=== PATIENT | female | born 1940 | race Caucasian/White ===

== ENCOUNTER 2022-01-29 18:57 | Emergency (ER) | payer OTHER, MEDICAID ==
[~2022-01-29] VITALS: Ht 165.1 cm; Wt 81.6 kg
[2022-01-29] MEDS ORDERED: SODIUM CHLORIDE 0.9% 1,000 ML IVB ONE (19:30)
[2022-01-29 20:09] LABS: Basophils # (auto) 0.1 10 ^3/uL (0-0.2); Basophils % (auto) 0.6 % (0.0-2.0); Eosinophils # (auto) 0.1 10 ^3/uL (0-0.8); Eosinophils % (auto) 0.6 % (0.0-7.0); Hematocrit 34.1 % (36.0-46.0); Hemoglobin 11.4 g/dL (12.2-16.2); Lymphocytes # (auto) 1.3 10 ^3/uL (0.4-5.4); Lymphocytes % (auto) 9.9 % (10.0-50.0); Mean Corpuscular Hemoglobin 31.4 pg (28.0-32.0); Mean Corpuscular Hgb Conc. 33.4 g/dL (32.0-36.0); Mean Corpuscular Volume 94.1 fL (80.0-100.0); Monocytes # (auto) 0.7 10 ^3/uL (0-1.3); Monocytes % (auto) 5.4 % (0.0-12.0); Neutrophils % (auto) 83.5 % (37.0-80.0); Red Blood Cells 3.62 10^6/uL (4.0-5.20); White Blood Cell 13.1 10^3/uL (4.4-10.8)
[2022-01-29 20:28] LABS: Calcium 8.7 mg/dL (8.5-10.1); Potassium 4.3 mmol/L (3.5-5.1)
[2022-01-29 20:30] LABS: Bilirubin, Total 0.2 mg/dL (0.2-1.0); Lactic Acid w/Reflex 2.5 mmol/L (0.4-2.0); Total Protein 5.9 g/dL (6.4-8.2)
[2022-01-29 20:38] LABS: INR 1.06 (0.9-1.15)
[2022-01-29 23:16] VITALS: BP 98/51
== END 2022-01-30 | disposition short-term general hospital (02) ==
LOC: EDBD 18:57 → ER 19:00
DX: S06.5X0A Traumatic subdural hemorrhage without loss of consciousness, initial encounter (principal); S80.811A Abrasion, right lower leg, initial encounter; R94.31 Abnormal electrocardiogram [ECG] [EKG]; Z20.822 Contact with and (suspected) exposure to COVID-19; W18.39XA Other fall on same level, initial encounter; Y93.89 Activity, other specified; Y92.89 Other specified places as the place of occurrence of the external cause; Y99.8 Other external cause status
CPT/HCPCS: 36415; 70450; 71045; 80053; 83605; 85025; 85610; 93005; 96360; 99285; C9803; J7030; U0003

== ENCOUNTER → 2022-02-25 | Outpatient (CLI) | payer MEDICAID ==
[2022-02-25 07:50] LABS: Basophils # (auto) 0.1 10 ^3/uL (0-0.2); Basophils % (auto) 1.3 % (0.0-2.0); Eosinophils # (auto) 0.1 10 ^3/uL (0-0.8); Hematocrit 33.2 % (36.0-46.0); Hemoglobin 10.6 g/dL (12.2-16.2); Lymphocytes # (auto) 1.1 10 ^3/uL (0.4-5.4); Lymphocytes % (auto) 20.7 % (10.0-50.0); Mean Corpuscular Hemoglobin 29.2 pg (28.0-32.0); Mean Corpuscular Volume 91.1 fL (80.0-100.0); Monocytes # (auto) 0.6 10 ^3/uL (0-1.3); Monocytes % (auto) 10.6 % (0.0-12.0); Neutrophils # (auto) 3.5 10 ^3/uL (1.6-8.6); Neutrophils % (auto) 65.4 % (37.0-80.0); Red Blood Cells 3.65 10^6/uL (4.0-5.20); White Blood Cell 5.4 10^3/uL (4.4-10.8)
[2022-02-25 07:55] LABS: Urine Bacteria NONE SEEN /hpf (None Seen); Urine Blood Negative /uL (Negative); Urine Specific Gravity 1.015 (1.001-1.035); Urine WBC 53 /hpf (0 - 5)
== END | disposition home or self-care (01) ==
LOC: LAB 07:24
PROVIDERS: ATTEND Internal Medicine
DX: Z00.00 Encounter for general adult medical examination without abnormal findings (principal)
CPT/HCPCS: 36415; 81001; 85025

== ENCOUNTER → 2022-04-01 | Outpatient (CLI) | payer MEDICAID ==
[2022-04-01 07:07] LABS: Basophils # (auto) 0.1 10 ^3/uL (0-0.2); Basophils % (auto) 1.2 % (0.0-2.0); Eosinophils # (auto) 0.1 10 ^3/uL (0-0.8); Eosinophils % (auto) 1.9 % (0.0-7.0); Hematocrit 35.2 % (36.0-46.0); Lymphocytes % (auto) 17.5 % (10.0-50.0); Mean Corpuscular Hemoglobin 27.4 pg (28.0-32.0); Mean Corpuscular Hgb Conc. 31.3 g/dL (32.0-36.0); Mean Corpuscular Volume 87.5 fL (80.0-100.0); Monocytes # (auto) 0.6 10 ^3/uL (0-1.3); Monocytes % (auto) 10.5 % (0.0-12.0); Neutrophils # (auto) 3.8 10 ^3/uL (1.6-8.6); Neutrophils % (auto) 68.9 % (37.0-80.0); Red Blood Cells 4.03 10^6/uL (4.0-5.20); White Blood Cell 5.5 10^3/uL (4.4-10.8)
[2022-04-01 08:02] LABS: Folate (Folic Acid) 14.71 ng/mL (5.38-24)
== END | disposition home or self-care (01) ==
LOC: LAB 06:45
PROVIDERS: ATTEND Internal Medicine
DX: N39.0 Urinary tract infection, site not specified (principal); D64.9 Anemia, unspecified
CPT/HCPCS: 36415; 82607; 82746; 85025

== ENCOUNTER → 2022-04-08 | Outpatient (CLI) | payer MEDICAID | END | disposition home or self-care (01) | LOC: LAB 12:08 | PROVIDERS: ATTEND Internal Medicine | DX: N39.0 Urinary tract infection, site not specified (principal); D64.9 Anemia, unspecified | CPT/HCPCS: 82270 ==

== ENCOUNTER → 2022-08-12 | Outpatient (CLI) | payer MEDICAID ==
[2022-08-12 09:24] LABS: Basophils # (auto) 0.1 10 ^3/uL (0-0.2); Basophils % (auto) 0.8 % (0.0-2.0); Eosinophils # (auto) 0.1 10 ^3/uL (0-0.8); Eosinophils % (auto) 1.1 % (0.0-7.0); Hematocrit 36.5 % (36.0-46.0); Hemoglobin 12.4 g/dL (12.2-16.2); Lymphocytes # (auto) 1.2 10 ^3/uL (0.4-5.4); Lymphocytes % (auto) 16.5 % (10.0-50.0); Mean Corpuscular Hgb Conc. 33.8 g/dL (32.0-36.0); Mean Corpuscular Volume 88.7 fL (80.0-100.0); Monocytes # (auto) 0.6 10 ^3/uL (0-1.3); Monocytes % (auto) 8.8 % (0.0-12.0); Neutrophils # (auto) 5.2 10 ^3/uL (1.6-8.6); Neutrophils % (auto) 72.8 % (37.0-80.0); Red Blood Cells 4.12 10^6/uL (4.0-5.20); Red Cell Distribution Width 17.1 % (11.8-14.3); White Blood Cell 7.1 10^3/uL (4.4-10.8)
== END | disposition home or self-care (01) ==
LOC: LAB 08:57
PROVIDERS: ATTEND Internal Medicine
DX: D64.9 Anemia, unspecified (principal)
CPT/HCPCS: 36415; 85025

== ENCOUNTER → 2022-12-23 | Outpatient (CLI) | payer OTHER, MEDICAID ==
[2022-12-23 07:36] LABS: Basophils # (auto) 0.1 10 ^3/uL (0-0.2); Basophils % (auto) 1.2 % (0.0-2.0); Eosinophils # (auto) 0.1 10 ^3/uL (0-0.8); Eosinophils % (auto) 2.6 % (0.0-7.0); Hematocrit 38.2 % (36.0-46.0); Hemoglobin 12.9 g/dL (12.2-16.2); Lymphocytes # (auto) 1.1 10 ^3/uL (0.4-5.4); Lymphocytes % (auto) 20.2 % (10.0-50.0); Mean Corpuscular Hemoglobin 31.6 pg (28.0-32.0); Mean Corpuscular Hgb Conc. 33.7 g/dL (32.0-36.0); Mean Corpuscular Volume 93.8 fL (80.0-100.0); Monocytes # (auto) 0.5 10 ^3/uL (0-1.3); Monocytes % (auto) 10.4 % (0.0-12.0); Neutrophils # (auto) 3.4 10 ^3/uL (1.6-8.6); Neutrophils % (auto) 65.6 % (37.0-80.0); Red Blood Cells 4.07 10^6/uL (4.0-5.20); White Blood Cell 5.2 10^3/uL (4.4-10.8)
[2022-12-23 08:01] LABS: Albumin 3.4 g/dL (3.4-5.0); Calcium 9.1 mg/dL (8.5-10.1); Potassium 4.4 mmol/L (3.5-5.1)
[2022-12-23 08:05] LABS: Bilirubin, Total 0.3 mg/dL (0.2-1.0); Total Protein 6.8 g/dL (6.4-8.2)
== END | disposition home or self-care (01) ==
LOC: LAB 07:10
PROVIDERS: ATTEND Internal Medicine
DX: D64.9 Anemia, unspecified (principal)
CPT/HCPCS: 36415; 80053; 85025

== ENCOUNTER → 2023-03-20 | Outpatient (CLI) | payer OTHER, MEDICAID | END | disposition home or self-care (01) | LOC: LAB 09:16 | PROVIDERS: ATTEND Internal Medicine | DX: D64.9 Anemia, unspecified (principal); E55.9 Vitamin D deficiency, unspecified; J44.9 Chronic obstructive pulmonary disease, unspecified | CPT/HCPCS: 36415; 82306; 84443 ==

== ENCOUNTER 2023-05-26 12:52 | Inpatient (IN) | payer OTHER, MEDICAID ==
[~2023-05-26] VITALS: Ht 160 cm; Wt 63.5 kg
[2023-05-26] MEDS ORDERED: ACCU-CHEK COMFORT CURVE STRIP VI ONE (13:15)
[2023-05-26 13:31] VITALS: O2SAT 98
[2023-05-26 13:55] LABS: Basophils # (auto) 0.1 10 ^3/uL (0-0.2); Basophils % (auto) 0.2 % (0.0-2.0); Eosinophils # (auto) 0.2 10 ^3/uL (0-0.8); Eosinophils % (auto) 0.7 % (0.0-7.0); Hematocrit 38.5 % (36.0-46.0); Hemoglobin 12.7 g/dL (12.2-16.2); Lymphocytes # (auto) 0.2 10 ^3/uL (0.4-5.4); Lymphocytes % (auto) 0.8 % (10.0-50.0); Mean Corpuscular Hemoglobin 30.8 pg (28.0-32.0); Mean Corpuscular Hgb Conc. 33.1 g/dL (32.0-36.0); Mean Corpuscular Volume 92.9 fL (80.0-100.0); Monocytes # (auto) 0.8 10 ^3/uL (0-1.3); Monocytes % (auto) 3.2 % (0.0-12.0); Neutrophils # (auto) 23.2 10 ^3/uL (1.6-8.6); Neutrophils % (auto) 95.1 % (37.0-80.0); Red Blood Cells 4.14 10^6/uL (4.0-5.20); Red Cell Distribution Width 13.9 % (11.8-14.3); White Blood Cell 24.3 10^3/uL (4.4-10.8)
[2023-05-26 14:18] LABS: Alanine Aminotransferase 36 U/L (7-40); Alkaline Phosphatase 75 U/L (46-116); Anion Gap 6 (5-15); Aspartate Aminotransferase 36 U/L (13-40); BUN/Creatinine Ratio 38.2 (10.0-20.0); Blood Urea Nitrogen 26 mg/dL (9-23); Calcium 9.4 mg/dL (8.5-10.1); Carbon Dioxide 26 mmol/L (20-30); Chloride 101 mmol/L (98-107); Glucose 102 mg/dL (74-106); Lactic Acid w/Reflex 2.2 mmol/L (0.4-2.0); Potassium 4.2 mmol/L (3.5-5.1); Sodium 133 mmol/L (136-145)
[2023-05-26 14:19] LABS: Albumin 3.9 g/dL (3.2-4.8); Total Protein 6.7 g/dL (5.7-8.2)
[2023-05-26 14:32] LABS: Erythrocyte Sedimentation Rate 39 mm/hr (0-20)
[2023-05-26] MEDS ORDERED: VANCOMYCIN 1GM/250ML 250 ML IV ONE (15:45)
[2023-05-26] MEDS ORDERED: cefTRIAXone 1GM/50ML D5W 50 ML IV ONE (15:45)
[2023-05-26] MEDS ORDERED: SODIUM CHLORIDE 0.9% 1,650 ML IV ONE (15:45)
[2023-05-26] MEDS ORDERED: DOCUSATE SOD 100 MG CAP PO PRN (16:45)
[2023-05-26] MEDS ORDERED: ONDANSETRON HCL 4 MG/2 ML VIAL IV PRN (16:45)
[2023-05-26] MEDS ORDERED: HYDROcodone-ACET 5/325MG TAB PO PRN (16:45)
[2023-05-26] MEDS ORDERED: MORPHINE SULFATE INJ 2 MG/ml SYRG IV PRN ×2 (16:45)
[2023-05-26] MEDS ORDERED: ACETAMINOPHEN 325 MG TAB PO PRN (16:45)
[2023-05-26] MEDS ORDERED: NITROGLYCERIN 0.4 MG SL TAB SL PRN (16:45)
[2023-05-26] MEDS ORDERED: BECL80AE11 INH (17:14)
[2023-05-26] MEDS ORDERED: OXYB5TAB10 PO (17:14)
[2023-05-26 17:50] VITALS: O2SAT 95
[2023-05-26 17:59] LABS: INR 1.19 (0.9-1.15); Partial Thromboplastin Time 33.9 SEC (24.5-34.5); Prothrombin Time 12.4 sec (9.3-11.8)
[2023-05-26] MEDS: SODIUM CHLORIDE 0.9% 1,000 ML IV SCH ×2 (18:04→22:19)
[2023-05-26 19:15] VITALS: PULSE 97; RESP 22; O2SAT 91
[2023-05-26 20:18] VITALS: BP 122/44; PULSE 78; RESP 16; TEMP 98.1; O2SAT 94
[2023-05-26] MEDS: OXYBUTYNIN CHL 5 MG TAB PO SCH (22:18)
[2023-05-26] MEDS: ceFAZolin 1GM/50ML 50 ML IV SCH (22:18)
[2023-05-26 22:29] VITALS: BP 109/67; PULSE 87; RESP 19; TEMP 98; O2SAT 97
[2023-05-27] VITALS (9 sets, daily range): BP systolic 106–137; BP diastolic 54–67; PULSE 67–94; RESP 18–20; TEMP 98–98.6; O2SAT 94–100
[2023-05-27] MEDS: ceFAZolin 1GM/50ML 50 ML IV SCH (05:20)
[2023-05-27] MEDS: OXYBUTYNIN CHL 5 MG TAB PO SCH ×3 (05:20→21:50)
[2023-05-27 05:25] LABS: Urine Bacteria NONE SEEN /hpf (None Seen); Urine Blood Negative /uL (Negative); Urine Clarity HAZY (Clear); Urine Mucus FEW (None Seen); Urine Protein, UAD 1+ (Negative); Urine Specific Gravity 1.019 (1.001-1.035); Urine Urobilinogen Normal (Negative); Urine WBC 18 /hpf (0 - 5)
[2023-05-27 05:28] LABS: Urine Color Yellow (Yellow)
[2023-05-27 05:58] LABS: Basophils # (auto) 0.1 10 ^3/uL (0-0.2); Basophils % (auto) 0.6 % (0.0-2.0); Eosinophils # (auto) 0.8 10 ^3/uL (0-0.8); Eosinophils % (auto) 6.9 % (0.0-7.0); Hematocrit 36.9 % (36.0-46.0); Hemoglobin 11.6 g/dL (12.2-16.2); Lymphocytes # (auto) 0.6 10 ^3/uL (0.4-5.4); Lymphocytes % (auto) 5.6 % (10.0-50.0); Mean Corpuscular Hemoglobin 31.4 pg (28.0-32.0); Mean Corpuscular Hgb Conc. 31.5 g/dL (32.0-36.0); Mean Corpuscular Volume 99.5 fL (80.0-100.0); Monocytes # (auto) 1.1 10 ^3/uL (0-1.3); Monocytes % (auto) 9.5 % (0.0-12.0); Neutrophils # (auto) 8.5 10 ^3/uL (1.6-8.6); Neutrophils % (auto) 77.4 % (37.0-80.0); Nucleated Red Blood Cells % 0.1 %; Red Blood Cells 3.71 10^6/uL (4.0-5.20); Red Cell Distribution Width 15.2 % (11.8-14.3)
[2023-05-27 06:08] LABS: Alanine Aminotransferase 34 U/L (7-40); Albumin 2.8 g/dL (3.2-4.8); Alkaline Phosphatase 50 U/L (46-116); Anion Gap 8 (5-15); Blood Urea Nitrogen 10 mg/dL (9-23); Calcium 8.2 mg/dL (8.5-10.1); Carbon Dioxide 20 mmol/L (20-30); Chloride 107 mmol/L (98-107); Glucose 105 mg/dL (74-106); Potassium 3.7 mmol/L (3.5-5.1); Sodium 135 mmol/L (136-145)
[2023-05-27 06:09] LABS: Aspartate Aminotransferase 35 U/L (13-40); Bilirubin, Total 0.3 mg/dL (0.2-1.0); Total Protein 5.3 g/dL (5.7-8.2)
[2023-05-27] MEDS ORDERED: PANTOPRAZOLE 40 MG TAB PO SCH (10:00)
[2023-05-27] MEDS: SODIUM CHLORIDE 0.9% 1,000 ML IV SCH ×2 (10:02→17:11)
[2023-05-27] MEDS: ASPirin 81 mg TAB PO SCH (10:02)
[2023-05-27] MEDS ORDERED: cefTRIAXone 1GM/50ML D5W 50 ML IV ONE (11:30)
[2023-05-27] MEDS ORDERED: LORazepam 2MG/ML-1ML VIAL IV PRN (21:00)
[2023-05-28 08:00] VITALS: PULSE 73
[2023-05-28] MEDS: SODIUM CHLORIDE 0.9% 1,000 ML IV SCH ×2 (08:45→17:12)
[2023-05-28] MEDS: cefTRIAXone 1GM/50ML D5W 50 ML IV SCH (09:00)
[2023-05-28] MEDS: ALBUTEROL SULF 2.5 MG/0.5ML(0.5%) NEB SOLN NEB PRN ×2 (09:19→13:48)
[2023-05-28] MEDS: IPRATROPIUM BROM 0.5 MG/2.5ML INH SOL NEB PRN ×2 (09:19→13:47)
[2023-05-28] MEDS: ASPirin 81 mg TAB PO SCH (10:00)
[2023-05-28] MEDS: OXYBUTYNIN CHL 5 MG TAB PO SCH ×2 (15:46→21:40)
[2023-05-28 16:42] VITALS: BP 97/57; PULSE 86; RESP 19; TEMP 97.9; O2SAT 92
[2023-05-28 18:40] VITALS: O2SAT 97
[2023-05-28 20:00] VITALS: PULSE 99
[2023-05-28 22:00] VITALS: BP 104/60; PULSE 90; RESP 18; TEMP 97.9; O2SAT 97
[2023-05-29] VITALS (12 sets, daily range): BP systolic 107–149; BP diastolic 51–68; PULSE 61–97; RESP 17–19; TEMP 37.1; O2SAT 90–96
[2023-05-29] MEDS: SODIUM CHLORIDE 0.9% 1,000 ML IV SCH ×3 (00:45→18:19)
[2023-05-29] MEDS: OXYBUTYNIN CHL 5 MG TAB PO SCH ×3 (06:16→21:40)
[2023-05-29] MEDS: ASPirin 81 mg TAB PO SCH (08:34)
[2023-05-29] MEDS: cefTRIAXone 1GM/50ML D5W 50 ML IV SCH (08:35)
[2023-05-29] MEDS ORDERED: VANCOMYCIN PER PHARMACY 0 MG IV SCH (09:30)
[2023-05-29] MEDS ORDERED: VANCOMYCIN 1GM/250ML 250 ML IV ONE (10:00)
[2023-05-29] MEDS: ceFAZolin 1GM/50ML 50 ML IV SCH ×2 (14:43→21:40)
[2023-05-30] MEDS: SODIUM CHLORIDE 0.9% 1,000 ML IV SCH ×2 (00:45→09:26)
[2023-05-30 05:00] VITALS: BP 152/53; PULSE 92; RESP 18; TEMP 98.5; O2SAT 95
[2023-05-30] MEDS: OXYBUTYNIN CHL 5 MG TAB PO SCH ×2 (05:45→13:59)
[2023-05-30] MEDS: ceFAZolin 1GM/50ML 50 ML IV SCH ×2 (05:45→13:59)
[2023-05-30 08:00] VITALS: PULSE 65; PULSE 90; RESP 20; O2SAT 98
[2023-05-30 09:00] VITALS: BP 122/58; PULSE 90; RESP 20; TEMP 98.5; O2SAT 98
[2023-05-30] MEDS: ASPirin 81 mg TAB PO SCH (09:26)
[2023-05-30] MEDS ORDERED: VANCOMYCIN 1GM/250ML 250 ML IV SCH (10:00)
[2023-05-30 11:57] VITALS: O2SAT 97
[2023-05-30 13:00] VITALS: BP 112/57; PULSE 71; RESP 20; TEMP 98.4; O2SAT 95
[2023-05-30 17:00] VITALS: BP 110/52; PULSE 84; RESP 22; TEMP 98.2; O2SAT 100
== END 2023-05-30 19:13 | DRG 871 ==
LOC: ER 12:52 → EDBD 12:52 → TELE 17:14 → TELE-CENTR 21:52
PROVIDERS: ADMIT Nurse Practitioner Family; ATTEND Internal Medicine
PROC: 05HC33Z Insertion of Infusion Device into Left Basilic Vein, Percutaneous Approach (ICD-10-PCS; principal; 2023-05-29)
PROC: B54NZZA Ultrasonography of Left Upper Extremity Veins, Guidance (ICD-10-PCS; 2023-05-29)
DX: A41.9 Sepsis, unspecified organism (principal); E43 Unspecified severe protein-calorie malnutrition; E87.1 Hypo-osmolality and hyponatremia; L03.115 Cellulitis of right lower limb; N17.9 Acute kidney failure, unspecified; G91.2 (Idiopathic) normal pressure hydrocephalus; N39.0 Urinary tract infection, site not specified; E87.20 Acidosis, unspecified; J45.909 Unspecified asthma, uncomplicated; N18.9 Chronic kidney disease, unspecified; R29.6 Repeated falls; E86.0 Dehydration; F03.90 Unspecified dementia, unspecified severity, without behavioral disturbance, psychotic disturbance, mood disturbance, and anxiety; F70 Mild intellectual disabilities; R70.0 Elevated erythrocyte sedimentation rate; R79.89 Other specified abnormal findings of blood chemistry; B95.61 Methicillin susceptible Staphylococcus aureus infection as the cause of diseases classified elsewhere; Z90.710 Acquired absence of both cervix and uterus; Z91.81 History of falling; Z68.22 Body mass index [BMI] 22.0-22.9, adult
CPT/HCPCS: 36415; 70450; 70551; 71045; 72125; 73700; 80053; 81001; 83605; 83880; 84443; 84484; 85025; 85610; 85652; 85730; 87040; 87205; 93005; 93971; 94640; 96365; 96368; 97110; 97116; 97163; 97530; G0378; J0690; J0696

== ENCOUNTER 2023-06-23 18:50 | Emergency (ER) | payer OTHER, MEDICAID ==
[~2023-06-23] VITALS: Ht 137.2 cm; Wt 63.6 kg
[~2023-06-23 18:50] MED LIST: OXYB5TAB10 PO
[2023-06-23 20:53] LABS: Basophils # (auto) 0.1 10 ^3/uL (0-0.2); Basophils % (auto) 0.9 % (0.0-2.0); Eosinophils # (auto) 0.1 10 ^3/uL (0-0.8); Eosinophils % (auto) 1.7 % (0.0-7.0); Hematocrit 35.9 % (36.0-46.0); Hemoglobin 11.8 g/dL (12.2-16.2); Lymphocytes # (auto) 1.4 10 ^3/uL (0.4-5.4); Lymphocytes % (auto) 18.1 % (10.0-50.0); Mean Corpuscular Hemoglobin 29.8 pg (28.0-32.0); Mean Corpuscular Hgb Conc. 32.8 g/dL (32.0-36.0); Monocytes # (auto) 0.9 10 ^3/uL (0-1.3); Monocytes % (auto) 11.6 % (0.0-12.0); Neutrophils # (auto) 5.2 10 ^3/uL (1.6-8.6); Neutrophils % (auto) 67.7 % (37.0-80.0); Red Blood Cells 3.95 10^6/uL (4.0-5.20); Red Cell Distribution Width 14.1 % (11.8-14.3); White Blood Cell 7.6 10^3/uL (4.4-10.8)
[2023-06-23 21:09] LABS: INR 1.08 (0.9-1.15); Partial Thromboplastin Time 33.9 SEC (24.5-34.5); Prothrombin Time 11.3 sec (9.3-11.8)
[2023-06-23 21:12] LABS: Albumin 3.6 g/dL (3.2-4.8); Alkaline Phosphatase 84 U/L (46-116); Anion Gap 7 (5-15); Aspartate Aminotransferase 13 U/L (13-40); BUN/Creatinine Ratio 28.3 (10.0-20.0); Blood Urea Nitrogen 15 mg/dL (9-23); Calcium 9.1 mg/dL (8.5-10.1); Carbon Dioxide 27 mmol/L (20-30); Chloride 102 mmol/L (98-107); Glucose 99 mg/dL (74-106); Potassium 4.5 mmol/L (3.5-5.1); Sodium 136 mmol/L (136-145)
[2023-06-23 21:13] LABS: Bilirubin, Total 0.2 mg/dL (0.2-1.0); Total Protein 6.2 g/dL (5.7-8.2)
[2023-06-23 21:16] LABS: Alanine Aminotransferase < 9 U/L (7-40)
[2023-06-24 04:03] VITALS: PULSE 64; RESP 16; O2SAT 97
[2023-06-24 14:22] VITALS: BP 142/55; PULSE 67; RESP 16; TEMP 97.8; O2SAT 96
== END 2023-06-24 14:38 | disposition home or self-care (01) ==
LOC: EDUNIT# 18:50 → EDBD 18:50 → ER 18:50
DX: L03.115 Cellulitis of right lower limb (principal); T82.898A Other specified complication of vascular prosthetic devices, implants and grafts, initial encounter; Z79.01 Long term (current) use of anticoagulants
CPT/HCPCS: 36415; 71045; 80053; 84484; 85025; 85610; 85730

== ENCOUNTER 2023-08-27 13:22 | Emergency (ER) | payer OTHER, MEDICAID ==
[~2023-08-27] VITALS: Ht 157.5 cm; Wt 67.2 kg
[2023-08-27 13:34] VITALS: BP 133/46; PULSE 77; RESP 20; O2SAT 96
[2023-08-27] MEDS ORDERED: ACET500T58 PO (15:28)
[2023-08-27] MEDS: ACETAMINOPHEN 500 MG TAB PO ONE (16:26)
== END 2023-08-27 16:28 | disposition home or self-care (01) ==
LOC: ER 13:22
DX: S00.03XA Contusion of scalp, initial encounter (principal); J45.909 Unspecified asthma, uncomplicated; Z90.710 Acquired absence of both cervix and uterus; W18.39XA Other fall on same level, initial encounter; Y93.89 Activity, other specified; Y92.89 Other specified places as the place of occurrence of the external cause; Y99.8 Other external cause status
CPT/HCPCS: 70450

== ENCOUNTER 2024-02-01 11:59 | Inpatient (IN) | payer OTHER, MEDICAID ==
[~2024-02-01] VITALS: Ht 144.8 cm; Wt 68.6 kg
[~2024-02-01 11:59] MED LIST changes: +ACET500T58 PO; -OXYB5TAB10 PO; +OXYB5TAB14 PO
[2024-02-01 13:36] LABS: Basophils # (auto) 0.1 10 ^3/uL (0-0.2); Eosinophils # (auto) 0.1 10 ^3/uL (0-0.8); Eosinophils % (auto) 1.9 % (0.0-7.0); Hematocrit 39.5 % (36.0-46.0); Hemoglobin 13.5 g/dL (12.2-16.2); Lymphocytes # (auto) 1.2 10 ^3/uL (0.4-5.4); Lymphocytes % (auto) 18.3 % (10.0-50.0); Mean Corpuscular Hemoglobin 32.4 pg (28.0-32.0); Mean Corpuscular Hgb Conc. 34.2 g/dL (32.0-36.0); Mean Corpuscular Volume 94.6 fL (80.0-100.0); Monocytes # (auto) 0.6 10 ^3/uL (0-1.3); Monocytes % (auto) 9.9 % (0.0-12.0); Neutrophils # (auto) 4.4 10 ^3/uL (1.6-8.6); Neutrophils % (auto) 68.9 % (37.0-80.0); Red Blood Cells 4.17 10^6/uL (4.0-5.20); Red Cell Distribution Width 13.4 % (11.8-14.3); White Blood Cell 6.3 10^3/uL (4.4-10.8)
[2024-02-01 13:45] LABS: Anion Gap 2 (5-15); Carbon Dioxide 28 mmol/L (20-30); Chloride 107 mmol/L (98-107); Potassium 4.9 mmol/L (3.5-5.1); Sodium 137 mmol/L (136-145)
[2024-02-01 13:51] LABS: BUN/Creatinine Ratio 21.2 (10.0-20.0); Blood Urea Nitrogen 11 mg/dL (9-23); Glucose 92 mg/dL (74-106)
[2024-02-01] MEDS: cefTRIAXone 1GM/50ML D5W 50 ML IV ONE (15:54)
[2024-02-01] MEDS ORDERED: ACETAMINOPHEN 325 MG TAB PO PRN (16:00)
[2024-02-01] MEDS ORDERED: ALBUTEROL SULF 2.5 MG/0.5ML(0.5%) NEB SOLN NEB PRN (16:00)
[2024-02-01] MEDS ORDERED: IPRATROPIUM BROM 0.5 MG/2.5ML INH SOL NEB PRN (16:00)
[2024-02-01] MEDS ORDERED: MORPHINE SULFATE INJ 2 MG/ml SYRG IV PRN (16:00)
[2024-02-01] MEDS ORDERED: HYDROcodone-ACET 5/325MG TAB PO PRN (16:00)
[2024-02-01] MEDS ORDERED: ONDANSETRON HCL 4 MG/2 ML VIAL IV PRN (16:00)
[2024-02-01] MEDS ORDERED: DOCUSATE SOD 100 MG CAP PO PRN (16:00)
[2024-02-01] MEDS: FUROSEMIDE 20 MG/2 ML VIAL IV ONE (16:01)
[2024-02-01 16:10] VITALS: BP 126/78; PULSE 79; RESP 17; TEMP 97.9; O2SAT 96
[2024-02-01] MEDS: CLINDAMYCIN 300MG IV 50 ML IV ONE (17:01)
[2024-02-01 18:48] VITALS: O2SAT 95
[2024-02-01 18:50] VITALS: PULSE 69; RESP 20; O2SAT 98
[2024-02-01 19:40] VITALS: PULSE 67; RESP 13; O2SAT 96
[2024-02-01 22:30] VITALS: BP 154/60; PULSE 86; RESP 19; TEMP 98.1; O2SAT 95
[2024-02-01] MEDS ORDERED: BECL80AE11 IN (23:18)
[2024-02-01 23:19] VITALS: BP 154/60; PULSE 86; RESP 19; TEMP 98.1; O2SAT 95
[2024-02-02] VITALS (10 sets, daily range): BP systolic 96–125; BP diastolic 47–65; PULSE 63–88; RESP 16–19; TEMP 97.7–98.5; O2SAT 95–98
[2024-02-02] MEDS: PANTOPRAZOLE 40 MG TAB PO SCH (06:15)
[2024-02-02 06:41] LABS: Basophils # (auto) 0.1 10 ^3/uL (0-0.2); Basophils % (auto) 1.1 % (0.0-2.0); Eosinophils # (auto) 0.1 10 ^3/uL (0-0.8); Eosinophils % (auto) 2.4 % (0.0-7.0); Hematocrit 37.5 % (36.0-46.0); Hemoglobin 12.9 g/dL (12.2-16.2); Lymphocytes # (auto) 1.2 10 ^3/uL (0.4-5.4); Lymphocytes % (auto) 21.3 % (10.0-50.0); Mean Corpuscular Hemoglobin 32.4 pg (28.0-32.0); Mean Corpuscular Hgb Conc. 34.6 g/dL (32.0-36.0); Mean Corpuscular Volume 93.8 fL (80.0-100.0); Monocytes # (auto) 0.7 10 ^3/uL (0-1.3); Monocytes % (auto) 13.3 % (0.0-12.0); Neutrophils # (auto) 3.4 10 ^3/uL (1.6-8.6); Neutrophils % (auto) 61.9 % (37.0-80.0); Nucleated Red Blood Cells % 0.1 %; Red Blood Cells 3.99 10^6/uL (4.0-5.20); Red Cell Distribution Width 12.9 % (11.8-14.3); White Blood Cell 5.4 10^3/uL (4.4-10.8)
[2024-02-02 06:45] LABS: Urine Bacteria FEW /hpf (None Seen); Urine Blood 1+ /uL (Negative); Urine Clarity Turbid (Clear); Urine Hyaline Cast FEW /lpf (0 - 2); Urine Mucus FEW (None Seen); Urine Protein, UAD Negative (Negative); Urine Specific Gravity 1.014 (1.001-1.035); Urine Urobilinogen Normal (Negative); Urine WBC 14 /hpf (0 - 5); Urine pH 5.5 (5.0-9.0)
[2024-02-02 06:46] LABS: Albumin 3.5 g/dL (3.2-4.8); Alkaline Phosphatase 92 U/L (46-116); Anion Gap 4 (5-15); Aspartate Aminotransferase < 8 U/L (13-40); BUN/Creatinine Ratio 22.8 (10.0-20.0); Bilirubin, Total 0.4 mg/dL (0.2-1.0); Blood Urea Nitrogen 13 mg/dL (9-23); Calcium 9.4 mg/dL (8.5-10.1); Carbon Dioxide 28 mmol/L (20-30); Chloride 109 mmol/L (98-107); Glucose 98 mg/dL (74-106); Potassium 4.1 mmol/L (3.5-5.1); Sodium 141 mmol/L (136-145)
[2024-02-02 06:51] LABS: Urine Color Straw (Yellow)
[2024-02-02 06:51] LABS: Alanine Aminotransferase < 9 U/L (7-40)
[2024-02-02] MEDS: cefTRIAXone 1GM/50ML D5W 50 ML IV SCH (09:18)
[2024-02-02] MEDS: ENOXAPARIN SOD 40 MG/0.4 ML SYRINGE SC SCH (09:23)
[2024-02-02] MEDS: ceFAZolin 1GM/50ML 50 ML IV SCH (14:59)
[2024-02-02] MEDS: OXYBUTYNIN CHL 5 MG TAB PO SCH (21:32)
[2024-02-03] VITALS (9 sets, daily range): BP systolic 98–155; BP diastolic 59–71; PULSE 70–98; RESP 16–20; TEMP 97.8–98.9; O2SAT 93–99
[2024-02-04] VITALS (7 sets, daily range): BP systolic 96–129; BP diastolic 56–87; PULSE 73–84; RESP 16–20; TEMP 97.8–98.4; O2SAT 96–97
[2024-02-04] MEDS ORDERED: DOXY-286 PO (12:28)
== END 2024-02-04 16:12 | disposition home or self-care (01) | DRG 603 ==
LOC: ER 11:59 → OVERFLOW 16:05 → EAST 22:00
PROVIDERS: ADMIT Nurse Practitioner Family; ATTEND Internal Medicine
DX: L03.116 Cellulitis of left lower limb (principal); G91.2 (Idiopathic) normal pressure hydrocephalus; J45.909 Unspecified asthma, uncomplicated; N18.9 Chronic kidney disease, unspecified; S81.802A Unspecified open wound, left lower leg, initial encounter; W18.39XA Other fall on same level, initial encounter; E66.9 Obesity, unspecified; Z90.710 Acquired absence of both cervix and uterus; Z90.49 Acquired absence of other specified parts of digestive tract; Y93.89 Activity, other specified; Y92.89 Other specified places as the place of occurrence of the external cause; Y99.8 Other external cause status; Z68.32 Body mass index [BMI] 32.0-32.9, adult
CPT/HCPCS: 36415; 80048; 80053; 81001; 85025; 85379; 87081; 93971; 96365; 96375; 97116; 97163; 97530; G0378; J3490